=== PATIENT | female | born 1960 | race Caucasian/White ===

== ENCOUNTER 2016-03-22 19:54 | Emergency (ER) | payer OTHER ==
--- NOTE | 2016-03-22 22:13 | ERRECORD ---
[facility] EMERGENCY RECORD HPI BACK (21:06 LLDO) CHIEF COMPLAINT: Patient presents for evaluation of pain, Patient presents for evaluation of tenderness, Patient presents for evaluation of apparently has disc out, causing spinal compression and stenosis. to see dr. conner next week and possible surgery the following week. HISTORIAN: History provided by patient. MECHANISM OF INJURY: No apparent mechanism of injury, No alcohol use associated with this incident, No drug use associated with this incident, No domestic violence associated with this incident, Not work related. LOCATION: Symptoms are localized to the back, to lumbar spine. QUALITY: Pain is dull in nature, described as aching. SEVERITY: Maximum severity of symptoms severe, Currently symptoms are moderate. TIME COURSE: Gradual onset of symptoms, Symptoms are worsening, Symptoms are constant. ASSOCIATED WITH: Associated symptoms reviewed, Associated with radiation of pain. EXACERBATED BY: Patient's condition exacerbated by movement, Patient's condition exacerbated by upright position, Patient's condition exacerbated by walking, Patient's condition exacerbated by PALPATION. RELIEVED BY: Patient's condition relieved by remaining still. RISK FACTORS: Risk factors reviewed, No malignancy risks identified, Herniated disc risks:, Risk factors for thoracic aortic dissection include, Abdominal aortic aneurysm risk factors, include hypertension. ROS CONSTITUTIONAL: Historian reports fatigue. (21:10 LLDO) EYES: Negative eye review of systems, Historian denies eye pain, denies eye redness, denies eye discharge. (21:13 LLDO) ENT: Negative ears, nose, throat review of systems, Historian denies epistaxis, denies rhinorrhea, denies sinus pain, denies sore throat. (21:13 LLDO) CARDIOVASCULAR: Negative cardiovascular review of systems, Historian denies chest pain, no radiation, Historian denies diaphoresis, denies syncope. (21:13 LLDO) RESPIRATORY: Negative respiratory review of systems, Historian denies cough, denies shortness of breath, denies sputum. (21:13 LLDO) GI: Negative gastrointestinal review of systems, Historian denies abdominal pain, denies constipation, denies diarrhea, denies nausea, denies vomiting. (21:13 LLDO) GENITOURINARY FEMALE: Negative genitourinary review of systems, Historian denies dysuria, denies frequency, denies urgency. (21:13 LLDO) MUSCULOSKELETAL: Historian reports back pain, reports myalgias. ONLY IN HPI. (21:10 LLDO) SKIN: Negative skin review of systems, Historian denies cellulitis, denies rash, denies skin changes, denies skin lesions. &a-1R&a+25V*p+0X*f3036Q*c202B*c15G*c2P*p-0X&a-25V&a+1R Name: Rain Ruiz : 1960 F55 MedRec: [id number] AcctNum: [id number] Prepared: TueMar 22, 2016 22:02 by Interface Page 1 of 4 pMD [facility] EMERGENCY RECORD (21:13 LLDO) NEUROLOGIC: Negative neurologic review of systems, Historian denies confusion, denies dizziness, denies focal weakness, denies mental status changes. (21:13 LLDO) HEMO/LYMPHATIC: Normal hematologic/lymphatic system review, Historian denies abnormal blood clotting, denies gum bleeding, denies petechiae. (21:13 LLDO) ALLERGIC/IMMUNOLOGIC: Normal allergy/immunologic system review, Historian denies eczema, denies environmental allergies, denies food allergies. (21:13 LLDO) PSYCHIATRIC: Negative psychiatric review of systems, Historian denies alcohol abuse, denies anxiety, denies depression, denies drug abuse, denies hallucinations. (21:13 LLDO) NOTES: All systems reviewed, negative except as described above. (21:10 LLDO) PAST MEDICAL HISTORY MEDICAL HISTORY: Flu vaccine up to date, Tetanus immunization up to date, Tetanus immunization up to date, Past medical history includes cardiac history, Past medical history includes musculoskeletal disorder, spinal stenosis, EPILEPSY, COMPRESSION L1-L3 HEP C+, Past medical history includes history of diabetes, diet controlled, Past medical history includes history of hypertension. FINISHED WITH HEP C REGIMINE 03/16/15. Verified 10/28/15. SPINAL STENOSIS. (TueMar 22, 2016 20:03 MDEB) FEMALE SURGICAL HISTORY: Surgical history of orthopedic surgery, SPINE, Surgical history of laparotomy, Notes: TIMES 2 DUE TO ENDOMETRIOSIS, OVARIAN CYST, ABDOMINAL ADHESIONS, Surgical history of cholecystectomy, Surgical history of tonsillectomy. Verified 10/28/15. (TueMar 22, 2016 20:03 MDEB) PSYCHIATRIC HISTORY: Psychiatric history includes, anxiety. Verified 10/28/15. (TueMar 22, 2016 20:03 MDEB) SOCIAL HISTORY: Patient denies alcohol use, Patient denies drug use, Patient has no smoking history, Patient denies alcohol use, Patient denies drug use, Patient has no smoking history, Lives at home, , Patient denies alcohol use, Patient denies drug use, Patient is a former tobacco user, smoked cigarettes, Patient quit smoking more than 10 years ago, Lives at home, with family,. Verified 10/28/15. (TueMar 22, 2016 20:03 MDEB) FAMILY HISTORY: Family istory is not significant, MOTHER HAD TIA, Family history includes diabetes, mother, Family history includes hypertension, mother, Family history includes malignancy, father. (TueMar 22, 2016 20:03 MDEB) NOTES: Nursing records reviewed, Agree with nursing records, Medication list reviewed. (21:13 LLDO) KNOWN ALLERGIES indomethacin: Reaction: Rash, Severity: Moderate, Source: Patient, - Entered brand: indomethacin Cap -- Entered brand: &a-1R&a+25V*p+0X*d7275O*c202B*c15G*c2P*p-0X&a-25V&a+1R Name: Rain Ruiz : 1960 F55 MedRec: [id number] AcctNum: [id number] Prepared: TueMar 22, 2016 22:02 by Interface Page 2 of 4 pMD [facility] EMERGENCY RECORD indomethacin Cap indomethacin sodium (Unconfirmed): Reaction: Rash ketorolac tromethamine (Unconfirmed): Reaction: Rash Toradol: Reaction: Rash, Severity: Moderate, Source: Patient, - Entered brand: Toradol Tab -- Entered brand: Toradol Tab CURRENT MEDICATIONS No recorded medications VITAL SIGNS (20:01 MDEB) VITAL SIGNS: BP: 162/98, Pulse: 94, Resp: 20, Temp: 98.2 (Tympanic), Pain: 6, O2 sat: 99 on Room Air, Time: 03/22/2016 20:01. PHYSICAL EXAM CONSTITUTIONAL: Vital Signs Reviewed, Patient afebrile, Pulse normal, Blood pressure, BP ELEVATED, Respiratory rate normal, Patient appears, uncomfortable, Patient appears, in moderate pain distress, Patient alert and oriented to person, place and time, Nursing notes reviewed. (21:11 LLDO) HEAD: Head exam normal, Head exam included findings of head atraumatic, normocephalic. (21:13 LLDO) EYES: Eye exam normal, Eye exam included findings of eyelids normal to inspection, Pupils equally round and reactive to light, Extraocular muscles intact. (21:13 LLDO) ENT: ENT exam normal, Ear exam normal, Nose exam normal. (21:13 LLDO) NECK: Neck exam normal, Neck exam included findings of normal range of motion, Trachea midline, no meningeal signs, no tenderness. (21:13 LLDO) RESPIRATORY CHEST: Respiratory and chest exam normal, Respiratory exam included findings of, Chest exam included findings of chest movement symmetrical, Chest expansion equal. (21:13 LLDO) CARDIOVASCULAR: Cardiovascular assessment normal, Cardiovascular exam included findings of heart rate regular rate and rhythm, Heart sounds normal. (21:13 LLDO) ABDOMEN FEMALE: Abdominal exam normal, Abdominal exam included findings of abdomen nontender, Bowel sounds normal, no peritoneal signs. (21:13 LLDO) BACK: Back exam included findings of normal inspection, Range of motion, limited by pain, Tenderness, no costovertebral angle tenderness, no Scoliosis, no pain with straight leg raise, X-rays not ordered, palpable spasms bilat. (21:11 LLDO) UPPER EXTREMITY: Upper extremity exam normal, Upper extremity exam included findings of inspection normal, Range of motion normal. (21:13 LLDO) LOWER EXTREMITY: Lower extremity exam normal, Lower extremity exam included findings of inspection normal, Range of motion normal. &a-1R&a+25V*p+0X*z0788M*c202B*c15G*c2P*p-0X&a-25V&a+1R Name: Rain Ruiz : 1960 F55 MedRec: [id number] AcctNum: [id number] Prepared: TueMar 22, 2016 22:02 by Interface Page 3 of 4 pMD [facility] EMERGENCY RECORD (21:13 LLDO) NEURO: Neuro exam normal, Neuro exam findings include patient oriented to person, place and time, Speech normal, Kasi coma scale 15. (21:13 LLDO) SKIN: Skin exam normal, Skin exam included findings of skin warm, dry, and normal in color, no rash. (21:13 LLDO) PSYCHIATRIC: Psychiatric exam normal, Psychiatric exam included findings of patient oriented to person place and time, Normal affect. (21:13 LLDO) MEDICATION ADMINISTRATION SUMMARY Drug Name: *Tylenol-Codeine #3, Dose Ordered: 1-2 tab(s), Route: Oral, Status: Given, Time: 21:15 03/22/2016, *Additional information available in notes, Detailed record available in Medication Service section. PROBLEM LIST No recorded problems DIAGNOSIS (21:15 LLDO) FINAL: PRIMARY: LOW BACK PAIN. PRESCRIPTION (21:16 LLDO) Valium oral: TABLET : 10 mg : ORAL : Quantity: 1 Unit: tab(s) Route: ORAL Schedule: every 6 hours PRN Dispense: 40 Unit: tab(s) May substitute. Refills: No Refills . NOTES: No Refills. Tylenol-Codeine #3: TABLET : 300 mg-30 mg : ORAL : Quantity: 1-2 Unit: tab(s) Route: ORAL Schedule: every 4 hours prn Dispense: 40 Unit: tab(s) May substitute. Refills: No Refills . NOTES: ^s=No Refills No Refills. DISPOSITION PATIENT: Disposition Type: Discharge, Disposition: *Discharge Home. (21:15 LLDO) Patient left the department. (21:55 MDEB) Bowden: LLDO=MD Ester, Armando MDEB=GERA Steele, Kaela &a-1R&a+25V*p+0X*s1551P*c202B*c15G*c2P*p-0X&a-25V&a+1R Name: Rain Ruiz : 1960 F55 MedRec: [id number] AcctNum: [id number] Prepared: TueMar 22, 2016 22:02 by Interface Page 4 of 4 pMD MTDD
--- NOTE | 2016-03-22 22:16 | PICIS ---
[facility] EMERGENCY RECORD TRIAGE (TueMar 22, 2016 20:03 MDEB) PATIENT: NAME: Rain Ruiz, AGE: 55, GENDER: female, : Tue1960, TIME OF GREET: TueMar 22, 2016 19:55, PREFERRED LANGUAGE: Tanzanian, RACE: WHITE, ETHNICITY: Not or , FALL RISK: NO, ECODE BILLING MAP: [facility], SSN: [id number], Zip Code: [address], KG WEIGHT: 102.06, PHONE: , , , PERSON ID: [id number], PCP: MD BENITEZ IMELDA. (TueMar 22, 2016 20:03 MDEB) TRIAGE NOTES: LOW BACK PAIN - PT REPORTS SCHEDULED FOR SURGERY IN 2 WKS. (TueMar 22, 2016 20:03 MDEB) COMPLAINT: BACK PAIN. (TueMar 22, 2016 20:03 MDEB) ADMISSION: URGENCY: 4 Non Urgent, ADMISSION SOURCE: Home, TRANSPORT: Walk-in, BED: TRIAGE. (TueMar 22, 2016 20:03 MDEB) PAIN: Patient complains of pain described as, aching, on a scale 0-10 patient rates pain as 6. (TueMar 22, 2016 20:03 MDEB) IMMUNIZATIONS: Tetanus immunization up to date. (TueMar 22, 2016 20:03 MDEB) TRIAGE SCREENING: Patient denies suicidal ideation, Patient denies presence of domestic violence. (TueMar 22, 2016 20:03 MDEB) PROVIDERS: TRIAGE NURSE: Kaela Steele RN. (TueMar 22, 2016 20:03 MDEB) VITAL SIGNS: BP 162/98, Pulse 94, Resp 20, Temp 98.2, (Tympanic), Pain 6, O2 Sat 99, on Room Air, Time 03/22/2016 20:01. (20:01 MDEB) PREVIOUS VISIT ALLERGIES: indomethacin, Toradol. (TueMar 22, 2016 20:03 MDEB) KNOWN ALLERGIES indomethacin: Reaction: Rash, Severity: Moderate, Source: Patient, - Entered brand: indomethacin Cap -- Entered brand: indomethacin Cap indomethacin sodium (Unconfirmed): Reaction: Rash ketorolac tromethamine (Unconfirmed): Reaction: Rash Toradol: Reaction: Rash, Severity: Moderate, Source: Patient, - Entered brand: Toradol Tab -- Entered brand: Toradol Tab CURRENT MEDICATIONS No recorded medications VITAL SIGNS (20:01 MDEB) VITAL SIGNS: BP: 162/98, Pulse: 94, Resp: 20, Temp: 98.2 (Tympanic), Pain: 6, O2 sat: 99 on Room Air, Time: 03/22/2016 20:01. MEDICATION ADMINISTRATION SUMMARY Drug Name: *Tylenol-Codeine #3, Dose Ordered: 1-2 tab(s), Route: Oral, Status: Given, Time: 21:15 03/22/2016, *Additional information available in notes, Detailed record available in Medication Service section. &a-1R&a+25V*p+0X*w9006U*c202B*c15G*c2P*p-0X&a-25V&a+1R Name: Rain Ruiz : 1960 F55 MedRec: [id number] AcctNum: [id number] Prepared: TueMar 22, 2016 22:07 by Interface Page 1 of 6 pMD [facility] EMERGENCY RECORD MEDICATION SERVICE (21:15 LLDO) Tylenol-Codeine #3: Order: Tylenol-Codeine #3 (acetaminophen/codeine phosphate) - Dose: 1-2 tab(s) : Oral Notes: THP OF 6 TABLETS 1-2 PO EVERY 4 HOURS NEEDED FOR PAIN Ordered by: Armando Norman MD Entered by: Armando Norman MD TueMar 22, 2016 21:26 Documented as given by: Kaela Steele RN TueMar 22, 2016 21:15 Patient, Medication, Dose, Route and Time verified prior to administration. Amount given: 27999, Site: Medication administered P.O., Correct patient, time, route, dose and medication confirmed prior to administration, Patient advised of actions and side-effects prior to administration, Allergies confirmed and medications reviewed prior to administration, Patient in position of comfort, Side rails up, Cart in lowest position, Family at bedside. HPI BACK (21:06 LLDO) CHIEF COMPLAINT: Patient presents for evaluation of pain, Patient presents for evaluation of tenderness, Patient presents for evaluation of apparently has disc out, causing spinal compression and stenosis. to see dr. conner next week and possible surgery the following week. HISTORIAN: History provided by patient. MECHANISM OF INJURY: No apparent mechanism of injury, No alcohol use associated with this incident, No drug use associated with this incident, No domestic violence associated with this incident, Not work related. LOCATION: Symptoms are localized to the back, to lumbar spine. QUALITY: Pain is dull in nature, described as aching. SEVERITY: Maximum severity of symptoms severe, Currently symptoms are moderate. TIME COURSE: Gradual onset of symptoms, Symptoms are worsening, Symptoms are constant. ASSOCIATED WITH: Associated symptoms reviewed, Associated with radiation of pain. EXACERBATED BY: Patient's condition exacerbated by movement, Patient's condition exacerbated by upright position, Patient's condition exacerbated by walking, Patient's condition exacerbated by PALPATION. RELIEVED BY: Patient's condition relieved by remaining still. RISK FACTORS: Risk factors reviewed, No malignancy risks identified, Herniated disc risks:, Risk factors for thoracic aortic dissection include, Abdominal aortic aneurysm risk factors, include hypertension. ROS CONSTITUTIONAL: Historian reports fatigue. (21:10 LLDO) EYES: Negative eye review of systems, Historian denies eye pain, denies eye redness, denies eye discharge. (21:13 LLDO) ENT: Negative ears, nose, throat review of systems, Historian &a-1R&a+25V*p+0X*x0165B*c202B*c15G*c2P*p-0X&a-25V&a+1R Name: Rain Ruiz : 1960 F55 MedRec: [id number] AcctNum: [id number] Prepared: TueMar 22, 2016 22:07 by Interface Page 2 of 6 pMD [facility] EMERGENCY RECORD denies epistaxis, denies rhinorrhea, denies sinus pain, denies sore throat. (21:13 LLDO) CARDIOVASCULAR: Negative cardiovascular review of systems, Historian denies chest pain, no radiation, Historian denies diaphoresis, denies syncope. (21:13 LLDO) RESPIRATORY: Negative respiratory review of systems, Historian denies cough, denies shortness of breath, denies sputum. (21:13 LLDO) GI: Negative gastrointestinal review of systems, Historian denies abdominal pain, denies constipation, denies diarrhea, denies nausea, denies vomiting. (21:13 LLDO) GENITOURINARY FEMALE: Negative genitourinary review of systems, Historian denies dysuria, denies frequency, denies urgency. (21:13 LLDO) MUSCULOSKELETAL: Historian reports back pain, reports myalgias. ONLY IN HPI. (21:10 LLDO) SKIN: Negative skin review of systems, Historian denies cellulitis, denies rash, denies skin changes, denies skin lesions. (21:13 LLDO) NEUROLOGIC: Negative neurologic review of systems, Historian denies confusion, denies dizziness, denies focal weakness, denies mental status changes. (21:13 LLDO) HEMO/LYMPHATIC: Normal hematologic/lymphatic system review, Historian denies abnormal blood clotting, denies gum bleeding, denies petechiae. (21:13 LLDO) ALLERGIC/IMMUNOLOGIC: Normal allergy/immunologic system review, Historian denies eczema, denies environmental allergies, denies food allergies. (21:13 LLDO) PSYCHIATRIC: Negative psychiatric review of systems, Historian denies alcohol abuse, denies anxiety, denies depression, denies drug abuse, denies hallucinations. (21:13 LLDO) NOTES: All systems reviewed, negative except as described above. (21:10 LLDO) PAST MEDICAL HISTORY MEDICAL HISTORY: Flu vaccine up to date, Tetanus immunization up to date, Tetanus immunization up to date, Past medical history includes cardiac history, Past medical history includes musculoskeletal disorder, spinal stenosis, EPILEPSY, COMPRESSION L1-L3 HEP C+, Past medical history includes history of diabetes, diet controlled, Past medical history includes history of hypertension. FINISHED WITH HEP C REGIMINE 03/16/15. Verified 10/28/15. SPINAL STENOSIS. (TueMar 22, 2016 20:03 MDEB) FEMALE SURGICAL HISTORY: Surgical history of orthopedic surgery, SPINE, Surgical history of laparotomy, Notes: TIMES 2 DUE TO ENDOMETRIOSIS, OVARIAN CYST, ABDOMINAL ADHESIONS, Surgical history of cholecystectomy, Surgical history of tonsillectomy. Verified 10/28/15. (TueMar 22, 2016 20:03 MDEB) PSYCHIATRIC HISTORY: Psychiatric history includes, anxiety. Verified 10/28/15. (TueMar 22, 2016 20:03 MDEB) &a-1R&a+25V*p+0X*g4459C*c202B*c15G*c2P*p-0X&a-25V&a+1R Name: Rain Ruiz : 1960 F55 MedRec: [id number] AcctNum: [id number] Prepared: TueMar 22, 2016 22:07 by Interface Page 3 of 6 pMD [facility] EMERGENCY RECORD SOCIAL HISTORY: Patient denies alcohol use, Patient denies drug use, Patient has no smoking history, Patient denies alcohol use, Patient denies drug use, Patient has no smoking history, Lives at home, , Patient denies alcohol use, Patient denies drug use, Patient is a former tobacco user, smoked cigarettes, Patient quit smoking more than 10 years ago, Lives at home, with family,. Verified 10/28/15. (TueMar 22, 2016 20:03 MDEB) FAMILY HISTORY: Family istory is not significant, MOTHER HAD TIA, Family history includes diabetes, mother, Family history includes hypertension, mother, Family history includes malignancy, father. (TueMar 22, 2016 20:03 MDEB) NOTES: Nursing records reviewed, Agree with nursing records, Medication list reviewed. (21:13 LLDO) PHYSICAL EXAM CONSTITUTIONAL: Vital Signs Reviewed, Patient afebrile, Pulse normal, Blood pressure, BP ELEVATED, Respiratory rate normal, Patient appears, uncomfortable, Patient appears, in moderate pain distress, Patient alert and oriented to person, place and time, Nursing notes reviewed. (21:11 LLDO) HEAD: Head exam normal, Head exam included findings of head atraumatic, normocephalic. (21:13 LLDO) EYES: Eye exam normal, Eye exam included findings of eyelids normal to inspection, Pupils equally round and reactive to light, Extraocular muscles intact. (21:13 LLDO) ENT: ENT exam normal, Ear exam normal, Nose exam normal. (21:13 LLDO) NECK: Neck exam normal, Neck exam included findings of normal range of motion, Trachea midline, no meningeal signs, no tenderness. (21:13 LLDO) RESPIRATORY CHEST: Respiratory and chest exam normal, Respiratory exam included findings of, Chest exam included findings of chest movement symmetrical, Chest expansion equal. (21:13 LLDO) CARDIOVASCULAR: Cardiovascular assessment normal, Cardiovascular exam included findings of heart rate regular rate and rhythm, Heart sounds normal. (21:13 LLDO) ABDOMEN FEMALE: Abdominal exam normal, Abdominal exam included findings of abdomen nontender, Bowel sounds normal, no peritoneal signs. (21:13 LLDO) BACK: Back exam included findings of normal inspection, Range of motion, limited by pain, Tenderness, no costovertebral angle tenderness, no Scoliosis, no pain with straight leg raise, X-rays not ordered, palpable spasms bilat. (21:11 LLDO) UPPER EXTREMITY: Upper extremity exam normal, Upper extremity exam included findings of inspection normal, Range of motion normal. (21:13 LLDO) LOWER EXTREMITY: Lower extremity exam normal, Lower extremity &a-1R&a+25V*p+0X*u2050W*c202B*c15G*c2P*p-0X&a-25V&a+1R Name: Rain Ruiz : 1960 F55 MedRec: [id number] AcctNum: [id number] Prepared: TueMar 22, 2016 22:07 by Interface Page 4 of 6 pMD [facility] EMERGENCY RECORD exam included findings of inspection normal, Range of motion normal. (21:13 LLDO) NEURO: Neuro exam normal, Neuro exam findings include patient oriented to person, place and time, Speech normal, Kasi coma scale 15. (21:13 LLDO) SKIN: Skin exam normal, Skin exam included findings of skin warm, dry, and normal in color, no rash. (21:13 LLDO) PSYCHIATRIC: Psychiatric exam normal, Psychiatric exam included findings of patient oriented to person place and time, Normal affect. (21:13 LLDO) EVENTS TRANSFER: Triage to Emergency Triage. (20:04 MDEB) Emergency Triage to Main ED -01. (20:04 MDEB) Emergency Main ED -01 to -H01. (20:52 MDEB) Removed from Emergency Main ED -H01. (21:55 MDEB) PROBLEM LIST No recorded problems DIAGNOSIS (21:15 LLDO) FINAL: PRIMARY: LOW BACK PAIN. DISPOSITION PATIENT: Disposition Type: Discharge, Disposition: *Discharge Home. (21:15 LLDO) Patient left the department. (21:55 MDEB) INSTRUCTION (21:19 LLDO) DISCHARGE: BACK CARE TIPS. FOLLOWUP: MD ELI, ZHANNA, [address] [address], [phone], Follow up with Primary Care Physician as scheduled. SPECIAL: Follow-up with your surgeon and pain management. PRESCRIPTION (21:16 LLDO) Valium oral: TABLET : 10 mg : ORAL : Quantity: 1 Unit: tab(s) Route: ORAL Schedule: every 6 hours PRN Dispense: 40 Unit: tab(s) May substitute. Refills: No Refills . NOTES: No Refills. Tylenol-Codeine #3: TABLET : 300 mg-30 mg : ORAL : Quantity: 1-2 Unit: tab(s) Route: ORAL Schedule: every 4 hours prn Dispense: 40 Unit: tab(s) May substitute. Refills: No Refills . NOTES: ^s=No Refills No Refills. ADMIN DIGITAL SIGNATURE: MD Norman Lloyd. (21:19 LLDO) &a-1R&a+25V*p+0X*k2608G*c202B*c15G*c2P*p-0X&a-25V&a+1R Name: Rain Ruiz : 1960 F55 MedRec: [id number] AcctNum: [id number] Prepared: TueMar 22, 2016 22:07 by Interface Page 5 of 6 pMD [facility] EMERGENCY RECORD MD Norman Lloyd. (21:26 LLDO) MD Norman Lloyd. (21:26 LLDO) Bowden: HARSHA=MD Norman Lloyd MDEB=GERA Steele, Kaela &a-1R&a+25V*p+0X*u7101K*c202B*c15G*c2P*p-0X&a-25V&a+1R Name: Rain Ruiz : 1960 F55 MedRec: [id number] AcctNum: [id number] Prepared: TueMar 22, 2016 22:07 by Interface Page 6 of 6 pMD [facility] MEDICATION RECONCILIATION You were seen in the Emergency Department on: TueMar 22, 2016 KNOWN ALLERGIES indomethacin: Reaction: Rash, Severity: Moderate, Source: Patient, - Entered brand: indomethacin Cap -- Entered brand: indomethacin Cap indomethacin sodium (Unconfirmed): Reaction: Rash ketorolac tromethamine (Unconfirmed): Reaction: Rash Toradol: Reaction: Rash, Severity: Moderate, Source: Patient, - Entered brand: Toradol Tab -- Entered brand: Toradol Tab MEDICATIONS GIVEN WHILE IN THE EMERGENCY DEPARTMENT Tylenol-Codeine #3 (acetaminophen/codeine phosphate) - Dose: 1-2 tab(s) : Oral Notes from the emergency department Reviewed with family Reviewed with patient PRESCRIPTIONS (2) Printed (2) Valium oral : TABLET : 10 mg : ORAL Quantity: 1, Unit: tab(s), Route: ORAL, Schedule: every 6 hours PRN, Dispense: 40 Unit: tab(s) &a-1R&a+25V*p+0X*r2246Q*c202B*c15G*c2P*p-0X&a-25V&a+1R Name: Rain Ruiz : 1960 F55 MedRec: [id number] AcctNum: [id number] Prepared: TueMar 22, 2016 22:07 by Interface Caron FLAHERTY
== END 2016-03-22 21:25 | disposition home or self-care (01) ==
LOC: MADERS 19:54
DX: M54.5 Low back pain (principal); G40.909 Epilepsy, unspecified, not intractable, without status epilepticus; I10 Essential (primary) hypertension; E11.9 Type 2 diabetes mellitus without complications; Z90.49 Acquired absence of other specified parts of digestive tract; Z90.89 Acquired absence of other organs; F41.9 Anxiety disorder, unspecified
CPT/HCPCS: 99283

== ENCOUNTER 2016-08-15 19:06 | Emergency (ER) | payer OTHER | END 2016-08-15 19:42 | disposition home or self-care (01) | LOC: MADERS 19:06 | DX: S30.0XXA Contusion of lower back and pelvis, initial encounter (principal); M48.06 Spinal stenosis, lumbar region; G40.909 Epilepsy, unspecified, not intractable, without status epilepticus; E11.9 Type 2 diabetes mellitus without complications; I10 Essential (primary) hypertension; F41.9 Anxiety disorder, unspecified; Z86.19 Personal history of other infectious and parasitic diseases; Z87.891 Personal history of nicotine dependence; W10.9XXA Fall (on) (from) unspecified stairs and steps, initial encounter | CPT/HCPCS: 99283 ==

== ENCOUNTER 2016-09-04 13:37 | Emergency (ER) | payer OTHER ==
[2016-09-04] MEDS ORDERED: Morphine Sulfate 2 MG/ML SYRINGE ONE (14:06)
[2016-09-04] MEDS ORDERED: Ondansetron ODT 4 MG TAB ONE (14:06)
== END 2016-09-04 14:30 | disposition home or self-care (01) ==
LOC: MADERS 13:37
DX: G89.18 Other acute postprocedural pain (principal); M54.5 Low back pain; B19.20 Unspecified viral hepatitis C without hepatic coma; E11.9 Type 2 diabetes mellitus without complications; I10 Essential (primary) hypertension; F41.9 Anxiety disorder, unspecified; Z87.891 Personal history of nicotine dependence
CPT/HCPCS: 96372; J2270; Q0162

== ENCOUNTER 2016-10-06 11:28 | Emergency (ER) | payer OTHER ==
[2016-10-06] MEDS ORDERED: Triple Antibiotic Oint 1 GM Packet ONE (11:59)
[2016-10-06] MEDS ORDERED: HYDROcodone/Acetaminophen 10/325 mg Tablet ONE (12:05)
[2016-10-06] MEDS ORDERED: Sulfameth/Trimethoprim DS 800-160mg TAB ONE (12:05)
[2016-10-06] MEDS ORDERED: Diazepam 5 MG TAB ONE ×2 (12:05→12:07)
== END 2016-10-06 12:10 | disposition home or self-care (01) ==
LOC: MADERS 11:28
DX: G89.18 Other acute postprocedural pain (principal); M54.9 Dorsalgia, unspecified; E11.9 Type 2 diabetes mellitus without complications; I10 Essential (primary) hypertension; F41.9 Anxiety disorder, unspecified; Z87.891 Personal history of nicotine dependence
CPT/HCPCS: 99283

== ENCOUNTER 2016-12-09 18:25 | Emergency (ER) | payer OTHER ==
[2016-12-09] MEDS ORDERED: Diazepam 5 MG TAB ONE (19:03)
[2016-12-09] MEDS ORDERED: Ondansetron ODT 4 MG TAB ONE (19:04)
== END 2016-12-09 19:13 | disposition home or self-care (01) ==
LOC: MADERS 18:25
DX: G89.18 Other acute postprocedural pain (principal); M54.5 Low back pain; E11.9 Type 2 diabetes mellitus without complications; F41.9 Anxiety disorder, unspecified; G40.909 Epilepsy, unspecified, not intractable, without status epilepticus; I10 Essential (primary) hypertension; Z87.891 Personal history of nicotine dependence; Z79.899 Other long term (current) drug therapy; Z79.891 Long term (current) use of opiate analgesic
CPT/HCPCS: 96372; J2270; Q0162

== ENCOUNTER 2016-12-15 14:09 | Outpatient (CLI) | payer OTHER ==
[2016-12-15 14:27] LABS: Hemoglobin 16.1 g/dL (12.0-16.0); Mean Corpuscular HGB CONC 32.7 g/dL (32.0-36.0); Mean Corpuscular Hemoglobin 28.6 pg (27.0-31.0); Mean Corpuscular Volume 87.4 fl (81.0-99.0); Mean Platelet Volume 7.7 fL (7.4-10.4); Platelet Count 188 thou/uL (130-400); RBC Distribution Width 13.1 % (11.5-14.5); Red Blood Cell (RBC) Count 5.64 mill/uL (4.20-5.40); White Blood Cell (WBC) Count 11.7 thou/uL (4.8-10.8)
== END 2016-12-15 14:10 | disposition home or self-care (01) ==
LOC: MADLAB 14:09
PROVIDERS: ATTEND Surgery
DX: T81.4XXA Infection following a procedure, initial encounter (principal)
CPT/HCPCS: 36415; 85027; 85652; 86140

== ENCOUNTER 2016-12-15 14:22 | Emergency (ER) | payer OTHER ==
[2016-12-15 15:25] LABS: Bilirubin Negative (Negative); Blood, Urine Negative (Negative); Clarity Clear (Clear); Glucose, Urine (Dipstick) Negative (Negative); Leukocyte Negative (Negative); Nitrite Negative (Negative); Protein, Urine (Dipstick) Negative (Neg-Trace); Specific Gravity, Urine 1.015 (1.005-1.030); Urobilinogen 0.2 mg/dL (0.2-1.0); pH, Urine 5.5 (5.0-9.0)
== END 2016-12-15 15:55 | disposition home or self-care (01) ==
LOC: MADERS 14:22
DX: R53.83 Other fatigue (principal); G40.909 Epilepsy, unspecified, not intractable, without status epilepticus; E11.9 Type 2 diabetes mellitus without complications; I10 Essential (primary) hypertension; F41.9 Anxiety disorder, unspecified; Z87.891 Personal history of nicotine dependence
CPT/HCPCS: 81003; 99283

== ENCOUNTER 2016-12-16 12:15 | Emergency (ER) | payer OTHER ==
[2016-12-16] MEDS ORDERED: Diazepam 5 MG TAB ONE (13:40)
[2016-12-16] MEDS ORDERED: HYDROcodone/Acetaminophen 10/325 mg Tablet ONE (13:40)
[2016-12-16] MEDS ORDERED: Gabapentin 100 MG CAP ONE (13:41)
[2016-12-16] MEDS ORDERED: Dexamethasone 4 MG TAB ONE (13:41)
== END 2016-12-16 14:18 | disposition home or self-care (01) ==
LOC: MADERS 12:15
DX: G89.18 Other acute postprocedural pain (principal); M54.5 Low back pain; E11.9 Type 2 diabetes mellitus without complications; I10 Essential (primary) hypertension; F41.9 Anxiety disorder, unspecified; Z87.891 Personal history of nicotine dependence
CPT/HCPCS: 99282; J8540

== ENCOUNTER 2017-01-09 15:14 | Emergency (ER) | payer OTHER ==
[2017-01-09] MEDS ORDERED: HYDROcodone/Acetaminophen 10/325 mg Tablet ONE (16:08)
== END 2017-01-09 16:16 | disposition home or self-care (01) ==
LOC: MADERS 15:14
DX: M54.5 Low back pain (principal); I10 Essential (primary) hypertension; G40.909 Epilepsy, unspecified, not intractable, without status epilepticus; E11.9 Type 2 diabetes mellitus without complications; F41.9 Anxiety disorder, unspecified; Z87.891 Personal history of nicotine dependence; Z79.899 Other long term (current) drug therapy; Z79.82 Long term (current) use of aspirin
CPT/HCPCS: 99283

== ENCOUNTER 2017-02-14 18:23 | Emergency (ER) | payer OTHER ==
[2017-02-14] MEDS ORDERED: Dexamethasone 4 MG TAB ONE (18:50)
[2017-02-14] MEDS ORDERED: HYDROcodone/Acetaminophen 10/325 mg Tablet ONE (18:50)
[2017-02-14] MEDS ORDERED: Diazepam 5 MG TAB ONE (18:50)
[2017-02-14] MEDS ORDERED: Acetaminophen 500 MG TAB ONE (18:50)
== END 2017-02-14 18:59 | disposition home or self-care (01) ==
LOC: MADERS 18:23
DX: M54.5 Low back pain (principal); G40.909 Epilepsy, unspecified, not intractable, without status epilepticus; I10 Essential (primary) hypertension; E11.9 Type 2 diabetes mellitus without complications; F41.9 Anxiety disorder, unspecified; Z87.891 Personal history of nicotine dependence; Z79.899 Other long term (current) drug therapy; Z79.82 Long term (current) use of aspirin
CPT/HCPCS: 99283; J8540

== ENCOUNTER 2017-04-08 14:13 | Emergency (ER) | payer OTHER ==
[2017-04-08] MEDS ORDERED: HYDROcodone/Acetaminophen 5/325 mg Tablet ONE (15:44)
== END 2017-04-08 15:56 | disposition home or self-care (01) ==
LOC: MADERS 14:13
DX: M54.5 Low back pain (principal); E11.9 Type 2 diabetes mellitus without complications; I10 Essential (primary) hypertension; F41.9 Anxiety disorder, unspecified; Z87.891 Personal history of nicotine dependence; Z79.82 Long term (current) use of aspirin; Z79.891 Long term (current) use of opiate analgesic; Z79.899 Other long term (current) drug therapy
CPT/HCPCS: 99283

== ENCOUNTER 2017-04-12 21:53 | Emergency (ER) | payer OTHER ==
[2017-04-12] MEDS ORDERED: Promethazine HCl 25 MG/ML VIAL ONE (22:21)
[2017-04-12] MEDS ORDERED: Morphine 4 MG/ML VIAL ONE (22:21)
== END 2017-04-12 22:50 | disposition home or self-care (01) ==
LOC: MADERS 21:53
DX: K52.9 Noninfective gastroenteritis and colitis, unspecified (principal); E78.5 Hyperlipidemia, unspecified; E11.9 Type 2 diabetes mellitus without complications; I10 Essential (primary) hypertension; F41.9 Anxiety disorder, unspecified; Z87.891 Personal history of nicotine dependence
CPT/HCPCS: 96372; J2270; J2550

== ENCOUNTER 2017-04-14 16:50 | Emergency (ER) | payer OTHER ==
[~2017-04-14 16:50] MED LIST: Sodium Chloride 0.9% 1,000 ML BAG ONE
[2017-04-14] MEDS ORDERED: Morphine 4 MG/ML VIAL ONE (17:10)
[2017-04-14] MEDS ORDERED: Pantoprazole 40 MG VIAL ONE (17:11)
[2017-04-14] MEDS ORDERED: Promethazine HCl 25 MG/ML VIAL ONE (17:11)
[2017-04-14 18:05] LABS: ALT (SGPT) 30 U/L (8-55); AST (SGOT) 20 U/L (5-34); Albumin 4.5 g/dL (3.5-5.0); Alkaline Phosphatase 81 U/L (40-150); Anion Gap 15 mmol/L (10-20); BUN (Urea Nitrogen) 22 mg/dL (9.8-20.1); Bilirubin, Total 0.6 mg/dL (0.2-1.2); Calc. Creatinine Clearance 0 mL/min (70-130); Calcium 9.8 mg/dL (7.8-10.44); Carbon Dioxide 25 mmol/L (22-29); Chloride 106 mmol/L (98-107); Estimated GFR-MDRD 69; Globulin 2.9 g/dL (2.4-3.5); Glucose 124 mg/dL (70-105); Lipase 41 U/L (8-78); Potassium 4.1 mmol/L (3.5-5.1); Protein, Total 7.4 g/dL (6.0-8.3); Sodium 142 mmol/L (136-145)
[2017-04-14 18:17] LABS: #Basophils 0.1 thou/uL (0.0-0.2); #Eosinphils 0.2 thou/uL (0.0-0.7); #Lymphocytes 3.3 thou/uL (1.20-3.40); #Monocytes 0.4 thou/uL (0.11-0.59); #Neutrophils 6.6 thou/uL (1.40-6.50); %Basophils 0.7 % (0.0-1.0); %Eosinophils 2.1 % (0.0-10.0); %Lymphocytes 30.7 % (21.0-51.0); %Monocytes 3.9 % (0.0-10.0); %Neutrophils 62.5 % (42.0-75.0); Hemoglobin 15.4 g/dL (12.0-16.0); Mean Corpuscular HGB CONC 34.6 g/dL (32.0-36.0); Mean Corpuscular Volume 92.4 fl (81.0-99.0); Mean Platelet Volume 6.2 fL (7.4-10.4); Platelet Count 195 thou/uL (130-400); RBC Distribution Width 12.1 % (11.5-14.5); Red Blood Cell (RBC) Count 4.83 mill/uL (4.20-5.40); White Blood Cell (WBC) Count 10.6 thou/uL (4.8-10.8)
--- NOTE | 2017-04-14 21:49 | CT ---
CT OF THE ABDOMEN AND PELVIS WITH IV AND ENTERIC CONTRAST MATERIAL 04/14/17 PROVIDED CLINICAL HISTORY: Right upper quadrant pain. FINDINGS: Comparison is made with the study dated 10/02/14. The visualized lung bases are free of significant opacity. Solid abdominal organs demonstrate an unremarkable CT appearance. There is no bowel dilatation, inflammatory fat stranding, free fluid or free air apparent. The append ix appears normal. Changes of prior cholecystectomy are seen. Postoperative changes are seen involving the lumbar spine. The osseous structures demonstrate no concerning lytic or blastic lesions. Occasional vascular calci fications are seen. There is possible wall thickening involving the visualized distal esophagus. IMPRESSION: Question mural thickening involving the distal esophagus, correlate with concerns for esophagitis. Fo llowup esophagram or endoscopy may be useful if indicated. POS: [facility]
== END 2017-04-14 19:49 | disposition home or self-care (01) ==
LOC: MADERS 16:50
DX: K20.9 Esophagitis, unspecified (principal); E78.5 Hyperlipidemia, unspecified; E11.9 Type 2 diabetes mellitus without complications; F41.9 Anxiety disorder, unspecified; Z87.891 Personal history of nicotine dependence; Z79.899 Other long term (current) drug therapy
CPT/HCPCS: 74177; 80053; 83690; 85025; 96365; 96366; 96375; C9113; J2270; J2550; J7050

== ENCOUNTER 2017-04-24 15:01 | Emergency (ER) | payer OTHER ==
--- NOTE | 2017-04-24 16:05 | RAD ---
CHEST PA AND LATERAL: History: 56-year-old female with cough. FINDINGS: Heart size is within normal limits. The lungs are clear. There is minimal motion artifact. No conflue nt pneumonia, overt edema or pleural effusion. Stable from 7-17-13. IMPRESSION: No acute intrathoracic disease. No evidence for pneumonia. POS: [facility]
== END 2017-04-24 16:11 | disposition home or self-care (01) ==
LOC: MADERS 15:01
DX: J20.9 Acute bronchitis, unspecified (principal); E78.5 Hyperlipidemia, unspecified; E11.9 Type 2 diabetes mellitus without complications; I10 Essential (primary) hypertension; F41.9 Anxiety disorder, unspecified; Z87.891 Personal history of nicotine dependence; Z79.891 Long term (current) use of opiate analgesic; Z79.899 Other long term (current) drug therapy
CPT/HCPCS: 71046

== ENCOUNTER 2017-05-06 10:52 | Emergency (ER) | payer OTHER ==
[2017-05-06] MEDS ORDERED: HYDROcodone/Acetaminophen 10/325 mg Tablet ONE (11:36)
[2017-05-06] MEDS ORDERED: cloNIDine 0.1 MG TAB ONE (12:00)
--- NOTE | 2017-05-06 12:36 | RAD ---
AP PELVIS RADIOGRAPH: DATE: 05/06/17. HISTORY: Fall. COMPARISON: 10/22/14. FINDINGS: There is no evidence of a fracture or dislocation. Joint spaces are stable when compared to the prio r exam. No other findings. IMPRESSION: No acute osseous abnormality involving the pelvis. POS: [facility]
--- NOTE | 2017-05-06 12:37 | RAD ---
TWO VIEWS LEFT HIP: DATE: 05/06/17. HISTORY: Injury after a fall. FINDINGS: There is no fracture or dislocation involving the left hip. No other osseous abnormality is apprecia juan. Phleboliths overlie the pelvis. IMPRESSION: No acute osseous abnormality of left hip. POS: [facility]
--- NOTE | 2017-05-06 12:37 | RAD ---
LEFT TIBIA FIBULA: HISTORY: Fall. Pain. COMPARISON: None. FINDINGS: No fracture. No cortical irregularity. No periosteal reaction. IMPRESSION: Unremarkable 2 views left tibia and fibula. POS: [facility]
--- NOTE | 2017-05-06 12:39 | RAD ---
TWO VIEWS OF THE LEFT SHOULDER: DATE: 05/06/17. HISTORY: Injury after fall. COMPARISON: 08/14/13. FINDINGS: Again noted is acromioclavicular joint osteoarthritis. The coracoclavicular and acromioclavicular di stances are within normal limits. There is no fracture or dislocation seen on provided images. No o ther osseous abnormality. The shoulder is stable from prior exam. IMPRESSION: 1. No acute osseous abnormality of left shoulder. 2. Acromioclavicular joint osteoarthritis. POS: [facility]
--- NOTE | 2017-05-06 12:40 | RAD ---
THREE VIEWS LEFT HAND: DATE: 05/06/17. HISTORY: Injury left hand after a fall. FINDINGS: There is no evidence of a fracture or dislocation involving the left hand. Minimal osteoarthritis in volves the interphalangeal joint of the thumb. IMPRESSION: No acute osseous abnormality of the left hand. POS: [facility]
== END 2017-05-06 12:30 | disposition home or self-care (01) ==
LOC: MADERS 10:52
DX: S40.012A Contusion of left shoulder, initial encounter (principal); S60.222A Contusion of left hand, initial encounter; I10 Essential (primary) hypertension; E78.5 Hyperlipidemia, unspecified; E11.9 Type 2 diabetes mellitus without complications; F41.9 Anxiety disorder, unspecified; Z87.891 Personal history of nicotine dependence; W19.XXXA Unspecified fall, initial encounter
CPT/HCPCS: 72170

== ENCOUNTER 2017-06-01 15:25 | Emergency (ER) | payer OTHER ==
[~2017-06-01 15:25] MED LIST changes: +Nitroglycerin 0.4 MG TAB (25 Tab Bottle) ONE; -Sodium Chloride 0.9% 1,000 ML BAG ONE
[2017-06-01 16:09] LABS: INR-International Normal Ratio 0.9; Prothrombin Time 12.1 SEC (12.0-14.7)
[2017-06-01 16:21] LABS: ALT (SGPT) 31 U/L (8-55); AST (SGOT) 20 U/L (5-34); Albumin 4.3 g/dL (3.5-5.0); Alkaline Phosphatase 96 U/L (40-150); Anion Gap 17 mmol/L (10-20); BUN (Urea Nitrogen) 10 mg/dL (9.8-20.1); Bilirubin, Total 0.4 mg/dL (0.2-1.2); CK (CPK) 124 U/L (29-168); Calc. Creatinine Clearance 0 mL/min (70-130); Calcium 9.8 mg/dL (7.8-10.44); Carbon Dioxide 23 mmol/L (22-29); Chloride 105 mmol/L (98-107); Estimated GFR-MDRD 80; Globulin 2.5 g/dL (2.4-3.5); Glucose 170 mg/dL (70-105); Potassium 4.3 mmol/L (3.5-5.1); Protein, Total 6.8 g/dL (6.0-8.3); Sodium 141 mmol/L (136-145)
[2017-06-01 16:23] LABS: CKMB 1.4 ng/mL (0-6.6); Troponin I Less than 0.010 ng/mL (< 0.028)
[2017-06-01 16:37] LABS: Hemoglobin 14.6 g/dL (12.0-16.0); Mean Corpuscular HGB CONC 34.8 g/dL (32.0-36.0); Mean Corpuscular Hemoglobin 31.3 pg (27.0-31.0); Mean Platelet Volume 7.2 fL (7.4-10.4); Platelet Count 171 thou/uL (130-400); RBC Distribution Width 12.2 % (11.5-14.5); Red Blood Cell (RBC) Count 4.66 mill/uL (4.20-5.40); White Blood Cell (WBC) Count 8.7 thou/uL (4.8-10.8)
[2017-06-01 16:52] LABS: Neutrophil 65 % (42-75)
[2017-06-01 16:53] LABS: Band 1 % (5-11); Eosinophils 3 % (0-10); Lymphocytes 23 % (21-51); Monocytes 2 % (0-10); PLT Morphology Comment Appears Adequate; RBC Morphology Normal; Reactive Lymphocytes 6 % (0-10)
[2017-06-01 16:54] LABS: MDiff Complete? YES; Manual Diff?? YES
--- NOTE | 2017-06-01 17:00 | RAD ---
AP VIEW CHEST: 06/01/17 HISTORY: Epigastric pain, high blood pressure. COMPARISON: Comparison made to previous exam from 01/27/14. AP view chest demonstrates the lungs to be well aerated. No evidence of active intrathoracic disease is seen. No evidence of effusions, pneumonia or pneumothorax seen. IMPRESSION: Unremarkable AP view chest. POS: [facility]
[2017-06-01] MEDS ORDERED: MORPHINE 10 MG/ML SYRINGE ONE (17:15)
[2017-06-01] MEDS ORDERED: Labetalol HCl 100 MG/20 ML VIAL ONE (17:16)
[2017-06-01] MEDS ORDERED: Lorazepam 2 MG/ML VIAL ONE (17:24)
[2017-06-01 17:27] LABS: Bilirubin Negative (Negative); Blood, Urine Negative (Negative); Clarity Clear (Clear); Glucose, Urine (Dipstick) Negative (Negative); Leukocyte Small (Negative); Nitrite Negative (Negative); Protein, Urine (Dipstick) Negative (Neg-Trace); Specific Gravity, Urine 1.015 (1.005-1.030); Urobilinogen 0.2 mg/dL (0.2-1.0); pH, Urine 7.5 (5.0-9.0)
[2017-06-01 17:35] LABS: Bacteria/HPF Rare-Few HPF (None Seen); RBC/HPF None Seen HPF (0-3); Squamous Epithelial 0-3 HPF (0-3); WBC/HPF 0-3 HPF (0-3); Yeast-All Forms Rare HPF (None Seen)
[2017-06-01] MEDS ORDERED: ALPRAZolam 0.25 MG TAB ONE ×2 (20:25)
== END 2017-06-01 20:42 | disposition short-term general hospital (02) ==
LOC: MADERS 15:25
DX: I20.0 Unstable angina (principal); I10 Essential (primary) hypertension; E11.9 Type 2 diabetes mellitus without complications; E78.5 Hyperlipidemia, unspecified; F41.9 Anxiety disorder, unspecified; Z87.891 Personal history of nicotine dependence; Z79.899 Other long term (current) drug therapy
CPT/HCPCS: 71045; 80053; 81001; 82550; 82553; 83880; 84484; 85025; 85610; 85730; 87086; 93005; 94760; 96374; 96375; 96376; J2060; J2270

== ENCOUNTER 2017-06-07 16:53 | Emergency (ER) | payer OTHER ==
[2017-06-07 17:54] LABS: Bilirubin Negative (Negative); Blood, Urine Negative (Negative); Clarity Clear (Clear); Glucose, Urine (Dipstick) Negative (Negative); Leukocyte Negative (Negative); Nitrite Negative (Negative); Protein, Urine (Dipstick) Negative (Neg-Trace); Urobilinogen 0.2 mg/dL (0.2-1.0)
[2017-06-07 18:02] LABS: #Basophils 0.1 thou/uL (0.0-0.2); #Eosinphils 0.2 thou/uL (0.0-0.7); #Lymphocytes 3.3 thou/uL (1.20-3.40); #Monocytes 0.2 thou/uL (0.11-0.59); #Neutrophils 6.6 thou/uL (1.40-6.50); %Basophils 0.8 % (0.0-1.0); %Eosinophils 2.1 % (0.0-10.0); %Lymphocytes 31.2 % (21.0-51.0); %Monocytes 2.3 % (0.0-10.0); %Neutrophils 63.5 % (42.0-75.0); Hemoglobin 15.5 g/dL (12.0-16.0); Mean Corpuscular HGB CONC 33.4 g/dL (32.0-36.0); Mean Corpuscular Hemoglobin 30.1 pg (27.0-31.0); Mean Corpuscular Volume 90.1 fl (81.0-99.0); Mean Platelet Volume 6.4 fL (7.4-10.4); Platelet Count 214 thou/uL (130-400); RBC Distribution Width 12.3 % (11.5-14.5); Red Blood Cell (RBC) Count 5.15 mill/uL (4.20-5.40); White Blood Cell (WBC) Count 10.4 thou/uL (4.8-10.8)
[2017-06-07 18:28] LABS: CK (CPK) 87 U/L (29-168); Lipase 38 U/L (8-78)
[2017-06-07 18:30] LABS: CKMB 0.7 ng/mL (0-6.6); Troponin I Less than 0.010 ng/mL (< 0.028)
[2017-06-07] MEDS ORDERED: MORPHINE 10 MG/ML SYRINGE ONE (18:46)
--- NOTE | 2017-06-07 19:06 | RAD ---
RADIOGRAPH CHEST 2 VIEWS: 06/07/17 HISTORY: 57-year-old female with hypertension and acute chest pain. FINDINGS: There is no air space density, pulmonary edema, pleural effusion, pneumothorax, or cardiomegaly. IMPRESSION: No acute cardiopulmonary findings. rose [] POS: [facility]
== END 2017-06-07 19:02 | disposition home or self-care (01) ==
LOC: MADERS 16:53
DX: R07.9 Chest pain, unspecified (principal); R30.0 Dysuria; F41.9 Anxiety disorder, unspecified; E11.9 Type 2 diabetes mellitus without complications; Z87.891 Personal history of nicotine dependence; E78.5 Hyperlipidemia, unspecified; M48.00 Spinal stenosis, site unspecified; Z79.891 Long term (current) use of opiate analgesic; Z79.899 Other long term (current) drug therapy
CPT/HCPCS: 36415; 71046; 81003; 82550; 82553; 83690; 84484; 85025; 93005; 96374; J2270

== ENCOUNTER 2017-07-31 13:54 | Emergency (ER) | payer OTHER ==
[2017-07-31] MEDS ORDERED: HYDROcodone/Acetaminophen 10/325 mg Tablet ONE (14:54)
[2017-07-31] MEDS ORDERED: Diazepam 5 MG TAB ONE (14:54)
[2017-07-31] MEDS ORDERED: Acetaminophen 325 MG TAB ONE (14:55)
[2017-07-31 15:02] LABS: Bilirubin Negative (Negative); Blood, Urine Negative (Negative); Clarity Clear (Clear); Glucose, Urine (Dipstick) Negative (Negative); Leukocyte Negative (Negative); Nitrite Negative (Negative); Protein, Urine (Dipstick) Negative (Neg-Trace); Urobilinogen 0.2 mg/dL (0.2-1.0)
[2017-07-31 15:03] LABS: Specific Gravity, Urine 1.006 (1.002-1.036)
== END 2017-07-31 15:50 | disposition home or self-care (01) ==
LOC: MADERS 13:54
DX: M54.5 Low back pain (principal); I25.10 Atherosclerotic heart disease of native coronary artery without angina pectoris; E78.5 Hyperlipidemia, unspecified; E11.9 Type 2 diabetes mellitus without complications; I10 Essential (primary) hypertension; F41.9 Anxiety disorder, unspecified; F43.10 Post-traumatic stress disorder, unspecified; Z87.891 Personal history of nicotine dependence; Z79.84 Long term (current) use of oral hypoglycemic drugs; Z79.899 Other long term (current) drug therapy; Z79.891 Long term (current) use of opiate analgesic; Z79.02 Long term (current) use of antithrombotics/antiplatelets
CPT/HCPCS: 81003; 99283

== ENCOUNTER 2017-08-23 22:03 | Emergency (ER) | payer OTHER ==
[2017-08-23 22:37] LABS: #Basophils 0.1 thou/uL (0.0-0.2); #Eosinphils 0.3 thou/uL (0.0-0.7); #Lymphocytes 3.2 thou/uL (1.20-3.40); #Monocytes 0.4 thou/uL (0.11-0.59); #Neutrophils 5.2 thou/uL (1.40-6.50); %Basophils 0.6 % (0.0-1.0); %Eosinophils 3.1 % (0.0-10.0); %Lymphocytes 35.5 % (21.0-51.0); %Monocytes 4.3 % (0.0-10.0); %Neutrophils 56.5 % (42.0-75.0); Hemoglobin 13.8 g/dL (12.0-16.0); Mean Corpuscular HGB CONC 33.8 g/dL (32.0-36.0); Mean Platelet Volume 6.6 fL (7.4-10.4); Platelet Count 173 thou/uL (130-400); RBC Distribution Width 12.3 % (11.5-14.5); Red Blood Cell (RBC) Count 4.74 mill/uL (4.20-5.40); White Blood Cell (WBC) Count 9.1 thou/uL (4.8-10.8)
[2017-08-23 22:55] LABS: INR-International Normal Ratio 0.9; PTT 27.3 SEC (22.9-36.1); Prothrombin Time 12.7 SEC (12.0-14.7)
--- NOTE | 2017-08-23 23:03 | RAD ---
CHEST ONE VIEW: 08/23/17 COMPARISON: 08/23/17 at 11:15 a.m. HISTORY: Pain. FINDINGS: Normal cardiac silhouette. Interval prominence of the pulmonary vasculature with increased interstiti al opacities likely due to edema or infiltrate. No significant pleural fluid. No pneumothorax. IMPRESSION: Pulmonary vascular prominence. Interstitial opacities due to edema or infiltrate. POS: [facility]
[2017-08-23 23:09] LABS: ALT (SGPT) 29 U/L (8-55); AST (SGOT) 20 U/L (5-34); Albumin 4.4 g/dL (3.5-5.0); Alkaline Phosphatase 95 U/L (40-150); Anion Gap 18 mmol/L (10-20); BUN (Urea Nitrogen) 23 mg/dL (9.8-20.1); Bilirubin, Total 0.4 mg/dL (0.2-1.2); CK (CPK) 77 U/L (29-168); Calc. Creatinine Clearance 0 mL/min (70-130); Calcium 9.9 mg/dL (7.8-10.44); Carbon Dioxide 24 mmol/L (22-29); Chloride 103 mmol/L (98-107); Estimated GFR-MDRD 70; Globulin 2.4 g/dL (2.4-3.5); Glucose 139 mg/dL (70-105); Magnesium 1.7 mg/dL (1.6-2.6); Protein, Total 6.8 g/dL (6.0-8.3); Sodium 141 mmol/L (136-145)
[2017-08-23 23:17] LABS: CKMB 0.6 ng/mL (0-6.6); Troponin I Less than 0.010 ng/mL (< 0.028)
[2017-08-24] MEDS ORDERED: Diazepam 5 MG TAB ONE (00:22)
[2017-08-24] MEDS ORDERED: Morphine 4 MG/ML VIAL ONE (00:22)
[2017-08-24] MEDS ORDERED: Ondansetron ODT 4 MG TAB ONE (00:22)
== END 2017-08-24 00:40 | disposition home or self-care (01) ==
LOC: MADERS 22:03
DX: M54.5 Low back pain (principal); I20.9 Angina pectoris, unspecified; E11.9 Type 2 diabetes mellitus without complications; E78.2 Mixed hyperlipidemia; I10 Essential (primary) hypertension; F41.9 Anxiety disorder, unspecified; F43.10 Post-traumatic stress disorder, unspecified; B19.20 Unspecified viral hepatitis C without hepatic coma; Z79.82 Long term (current) use of aspirin; Z79.84 Long term (current) use of oral hypoglycemic drugs; Z87.891 Personal history of nicotine dependence
CPT/HCPCS: 36415; 71045; 83735; 83880; 85610; 85730; 93005; 94760; 96372; J2270; Q0162

== ENCOUNTER 2017-08-25 14:56 | Emergency (ER) | payer OTHER ==
[2017-08-25 16:03] LABS: #Basophils 0.1 thou/uL (0.0-0.2); #Eosinphils 0.3 thou/uL (0.0-0.7); #Lymphocytes 2.6 thou/uL (1.20-3.40); #Monocytes 0.5 thou/uL (0.11-0.59); #Neutrophils 6.3 thou/uL (1.40-6.50); %Basophils 0.9 % (0.0-1.0); %Eosinophils 2.8 % (0.0-10.0); %Lymphocytes 26.4 % (21.0-51.0); %Monocytes 4.8 % (0.0-10.0); Hemoglobin 14.9 g/dL (12.0-16.0); Mean Corpuscular Hemoglobin 30.2 pg (27.0-31.0); Mean Corpuscular Volume 86.2 fl (81.0-99.0); Mean Platelet Volume 6.9 fL (7.4-10.4); Platelet Count 188 thou/uL (130-400); RBC Distribution Width 12.2 % (11.5-14.5); Red Blood Cell (RBC) Count 4.93 mill/uL (4.20-5.40); White Blood Cell (WBC) Count 9.7 thou/uL (4.8-10.8)
[2017-08-25 16:22] LABS: ALT (SGPT) 33 U/L (8-55); AST (SGOT) 25 U/L (5-34); Albumin 4.7 g/dL (3.5-5.0); Alkaline Phosphatase 98 U/L (40-150); Anion Gap 22 mmol/L (10-20); BUN (Urea Nitrogen) 18 mg/dL (9.8-20.1); Bilirubin, Total 0.5 mg/dL (0.2-1.2); Calc. Creatinine Clearance 0 mL/min (70-130); Calcium 10.1 mg/dL (7.8-10.44); Carbon Dioxide 21 mmol/L (22-29); Chloride 99 mmol/L (98-107); Estimated GFR-MDRD 66; Globulin 2.8 g/dL (2.4-3.5); Glucose 134 mg/dL (70-105); Potassium 4.4 mmol/L (3.5-5.1); Protein, Total 7.5 g/dL (6.0-8.3); Sodium 138 mmol/L (136-145)
[2017-08-25] MEDS ORDERED: Morphine 4 MG/ML VIAL ONE (16:33)
== END 2017-08-25 17:07 | disposition short-term general hospital (02) ==
LOC: MADERS 14:56
DX: M54.5 Low back pain (principal); R29.818 Other symptoms and signs involving the nervous system; E11.9 Type 2 diabetes mellitus without complications; E78.5 Hyperlipidemia, unspecified; I10 Essential (primary) hypertension; E78.1 Pure hyperglyceridemia; F41.9 Anxiety disorder, unspecified; M48.00 Spinal stenosis, site unspecified; F43.10 Post-traumatic stress disorder, unspecified; Z79.899 Other long term (current) drug therapy; Z79.891 Long term (current) use of opiate analgesic; Z79.82 Long term (current) use of aspirin
CPT/HCPCS: 80053; 85025; 85652; 96374; J2270

== ENCOUNTER 2017-09-15 17:58 | Emergency (ER) | payer OTHER ==
[2017-09-15] MEDS ORDERED: Dexamethasone 4 MG TAB ONE (18:43)
[2017-09-15] MEDS ORDERED: Morphine 10 MG/ML VIAL ONE (18:43)
[2017-09-15] MEDS ORDERED: Diazepam 5 MG TAB ONE (18:43)
[2017-09-15] MEDS ORDERED: Naloxone HCl 2 mg/2 ml Syringe ONE (20:25)
== END 2017-09-15 19:12 | disposition home or self-care (01) ==
LOC: MADERS 17:58
DX: M54.5 Low back pain (principal); E11.9 Type 2 diabetes mellitus without complications; E78.1 Pure hyperglyceridemia; I10 Essential (primary) hypertension; F41.9 Anxiety disorder, unspecified; F43.10 Post-traumatic stress disorder, unspecified; I20.9 Angina pectoris, unspecified; Z87.891 Personal history of nicotine dependence; Z79.899 Other long term (current) drug therapy; Z79.891 Long term (current) use of opiate analgesic; Z79.82 Long term (current) use of aspirin; Z79.84 Long term (current) use of oral hypoglycemic drugs
CPT/HCPCS: 96372; J2270; J2310; J8540

== ENCOUNTER 2018-01-19 20:34 | Emergency (ER) | payer OTHER ==
[2018-01-19 21:45] LABS: #Basophils 0.1 thou/uL (0.0-0.2); #Eosinphils 0.2 thou/uL (0.0-0.7); #Lymphocytes 2.7 thou/uL (1.20-3.40); #Monocytes 0.4 thou/uL (0.11-0.59); #Neutrophils 9.8 thou/uL (1.40-6.50); %Basophils 0.6 % (0.0-1.0); %Eosinophils 1.7 % (0.0-10.0); %Lymphocytes 20.4 % (21.0-51.0); %Monocytes 2.8 % (0.0-10.0); %Neutrophils 74.6 % (42.0-75.0); Mean Corpuscular HGB CONC 33.4 g/dL (32.0-36.0); Mean Corpuscular Hemoglobin 29.5 pg (27.0-31.0); Mean Corpuscular Volume 88.4 fL (78.0-98.0); Mean Platelet Volume 6.3 fL (7.4-10.4); Platelet Count 272 thou/uL (130-400); RBC Distribution Width 12.7 % (11.5-14.5); Red Blood Cell (RBC) Count 5.76 mill/uL (4.20-5.40); White Blood Cell (WBC) Count 13.2 thou/uL (4.8-10.8)
[2018-01-19] MEDS ORDERED: HYDROcodone/Acetaminophen 10/325 mg Tablet ONE (21:47)
[2018-01-19] MEDS ORDERED: Acetaminophen 325 MG TAB ONE (21:47)
--- NOTE | 2018-01-20 07:39 | RAD ---
TWO VIEWS OF THE CHEST: 01/19/18 COMPARISON: 12/30/17. HISTORY: Chest pressure and shortness of breath since earlier today. FINDINGS: Two views of the chest show normal sized cardiomediastinal silhouette. There is no evidence of consol idation, mass, or pleural effusion. The bones are unremarkable. IMPRESSION: No evidence of acute cardiopulmonary disease. POS: [facility]
== END 2018-01-19 21:55 | disposition left against medical advice (07) ==
LOC: MADERS 20:34
DX: R07.9 Chest pain, unspecified (principal); I25.10 Atherosclerotic heart disease of native coronary artery without angina pectoris
CPT/HCPCS: 71046; 85025; 93005

== ENCOUNTER 2018-01-20 19:15 | Emergency (ER) | payer OTHER ==
[2018-01-20 19:49] LABS: Band 3 % (5-11); Eosinophils 2 % (0-10); Hemoglobin 16.1 g/dL (12.0-16.0); Lymphocytes 23 % (21-51); MDiff Complete? YES; Mean Corpuscular HGB CONC 33.7 g/dL (32.0-36.0); Mean Corpuscular Hemoglobin 29.6 pg (27.0-31.0); Mean Corpuscular Volume 87.7 fL (78.0-98.0); Monocytes 5 % (0-10); Neutrophil 67 % (42-75); PLT Morphology Comment Appears Adequate; Platelet Count 216 thou/uL (130-400); RBC Distribution Width 12.5 % (11.5-14.5); Red Blood Cell (RBC) Count 5.45 mill/uL (4.20-5.40); White Blood Cell (WBC) Count 11.2 thou/uL (4.8-10.8)
[2018-01-20 19:52] LABS: ALT (SGPT) 25 U/L (8-55); AST (SGOT) 16 U/L (5-34); Albumin 4.5 g/dL (3.5-5.0); Alkaline Phosphatase 93 U/L (40-150); Anion Gap 16 mmol/L (10-20); BUN (Urea Nitrogen) 16 mg/dL (9.8-20.1); Bilirubin, Total 0.7 mg/dL (0.2-1.2); Calc. Creatinine Clearance 0 mL/min (70-130); Calcium 9.7 mg/dL (7.8-10.44); Carbon Dioxide 23 mmol/L (22-29); Chloride 102 mmol/L (98-107); Estimated GFR-MDRD 73; Globulin 2.5 g/dL (2.4-3.5); Glucose 253 mg/dL (70-105); Potassium 4.1 mmol/L (3.5-5.1); Sodium 137 mmol/L (136-145)
[2018-01-20] MEDS ORDERED: Ondansetron PF 4 MG/2 ML Vial ONE (20:24)
[2018-01-20] MEDS ORDERED: Acetaminophen/Codeine 30-300mg Tablet ONE (20:24)
--- NOTE | 2018-01-20 21:07 | RAD ---
ONE VIEW CHEST: 01/20/18 HISTORY: Chest pain. AP view chest is obtained on 01/20/18. COMPARISON: Comparison made to previous radiograph from 12/04/17. AP view chest is unremarkable. No evidence of acute intrathoracic abnormality seen. No evidence of ef fusions, pneumonia or pneumothorax seen. IMPRESSION: Unremarkable AP view chest. POS: [facility]
== END 2018-01-20 20:37 | disposition short-term general hospital (02) ==
LOC: MADERS 19:15
DX: R07.9 Chest pain, unspecified (principal); F90.9 Attention-deficit hyperactivity disorder, unspecified type; F41.9 Anxiety disorder, unspecified; E11.9 Type 2 diabetes mellitus without complications; E78.1 Pure hyperglyceridemia; Z87.891 Personal history of nicotine dependence; Z79.891 Long term (current) use of opiate analgesic; Z79.82 Long term (current) use of aspirin; Z79.899 Other long term (current) drug therapy
CPT/HCPCS: 71045; 80053; 84484; 85025; 93005; 96374; J2405

== ENCOUNTER 2018-01-23 18:43 | Emergency (ER) | payer OTHER ==
[2018-01-23 19:05] LABS: #Basophils 0.1 thou/uL (0.0-0.2); #Eosinphils 0.3 thou/uL (0.0-0.7); #Lymphocytes 2.9 thou/uL (1.20-3.40); #Monocytes 0.6 thou/uL (0.11-0.59); #Neutrophils 7.1 thou/uL (1.40-6.50); %Basophils 0.7 % (0.0-1.0); %Eosinophils 2.9 % (0.0-10.0); %Lymphocytes 26.3 % (21.0-51.0); %Monocytes 5.4 % (0.0-10.0); %Neutrophils 64.8 % (42.0-75.0); Hemoglobin 15.4 g/dL (12.0-16.0); Mean Corpuscular HGB CONC 33.9 g/dL (32.0-36.0); Mean Corpuscular Hemoglobin 29.8 pg (27.0-31.0); Mean Platelet Volume 6.2 fL (7.4-10.4); Platelet Count 257 thou/uL (130-400); RBC Distribution Width 12.7 % (11.5-14.5); Red Blood Cell (RBC) Count 5.17 mill/uL (4.20-5.40)
[2018-01-23 19:19] LABS: ALT (SGPT) 50 U/L (8-55); AST (SGOT) 35 U/L (5-34); Albumin 4.7 g/dL (3.5-5.0); Alkaline Phosphatase 91 U/L (40-150); Anion Gap 21 mmol/L (10-20); BUN (Urea Nitrogen) 15 mg/dL (9.8-20.1); Bilirubin, Total 0.7 mg/dL (0.2-1.2); Calc. Creatinine Clearance 0 mL/min (70-130); Carbon Dioxide 19 mmol/L (22-29); Chloride 103 mmol/L (98-107); Estimated GFR-MDRD 58; Globulin 2.7 g/dL (2.4-3.5); Glucose 171 mg/dL (70-105); Potassium 4.4 mmol/L (3.5-5.1); Protein, Total 7.4 g/dL (6.0-8.3); Sodium 139 mmol/L (136-145)
--- NOTE | 2018-01-23 19:20 | RAD ---
CHEST ONE VIEW: INDICATIONS: Chest pain. FINDINGS: The lungs are clear. The cardiomediastinal silhouette is within normal limits. No acute osseous abn ormality is evident. IMPRESSION: No acute cardiopulmonary abnormality. POS: [facility]
[2018-01-23 19:22] LABS: CKMB 0.7 ng/mL (0-6.6); Troponin I Less than 0.010 ng/mL (< 0.028)
[2018-01-23] MEDS ORDERED: Acetaminophen/Codeine 30-300mg Tablet ONE (19:55)
== END 2018-01-23 20:00 | disposition home or self-care (01) ==
LOC: MADERS 18:43
DX: R07.89 Other chest pain (principal); E11.9 Type 2 diabetes mellitus without complications; E78.5 Hyperlipidemia, unspecified; E78.2 Mixed hyperlipidemia; I10 Essential (primary) hypertension; I25.10 Atherosclerotic heart disease of native coronary artery without angina pectoris; F41.9 Anxiety disorder, unspecified; Z87.891 Personal history of nicotine dependence; Z79.82 Long term (current) use of aspirin; Z79.84 Long term (current) use of oral hypoglycemic drugs
CPT/HCPCS: 71045; 80053; 82553; 84484; 85025; 93005

== ENCOUNTER 2018-09-25 17:05 | Emergency (ER) | payer OTHER ==
[2018-09-25 18:04] LABS: Bilirubin Negative (Negative); Blood, Urine Negative (Negative); Clarity Clear (Clear); Glucose, Urine (Dipstick) 500 mg/dL (Negative); Leukocyte Negative (Negative); Nitrite Negative (Negative); Protein, Urine (Dipstick) Negative (Neg-Trace); Urobilinogen 0.2 mg/dL (Less than 2)
[2018-09-25] MEDS ORDERED: HYDROcodone/Acetaminophen 5/325 mg Tablet ONE (18:06)
[2018-09-25 18:19] LABS: #Basophils 0.1 thou/uL (0.0-0.2); #Eosinphils 0.2 thou/uL (0.0-0.7); #Lymphocytes 2.2 thou/uL (1.20-3.40); #Monocytes 0.6 thou/uL (0.11-0.59); #Neutrophils 6.1 thou/uL (1.40-6.50); %Basophils 0.8 % (0.0-1.0); %Eosinophils 2.5 % (0.0-10.0); %Lymphocytes 24.1 % (21.0-51.0); %Monocytes 6.1 % (0.0-10.0); %Neutrophils 66.6 % (42.0-75.0); Hemoglobin 14.7 g/dL (12.0-16.0); Mean Corpuscular Hemoglobin 28.4 pg (27.0-31.0); Mean Platelet Volume 6.9 fL (7.4-10.4); Platelet Count 200 thou/uL (130-400); RBC Distribution Width 12.8 % (11.5-14.5); Red Blood Cell (RBC) Count 5.18 mill/uL (4.20-5.40); White Blood Cell (WBC) Count 9.2 thou/uL (4.8-10.8)
[2018-09-25 18:37] LABS: ALT (SGPT) 29 U/L (8-55); AST (SGOT) 22 U/L (5-34); Albumin 4.6 g/dL (3.5-5.0); Alkaline Phosphatase 124 U/L (40-150); Anion Gap 19 mmol/L (10-20); BUN (Urea Nitrogen) 10 mg/dL (9.8-20.1); Bilirubin, Total 0.3 mg/dL (0.2-1.2); Calc. Creatinine Clearance 0 mL/min (70-130); Calcium 9.8 mg/dL (7.8-10.44); Carbon Dioxide 26 mmol/L (22-29); Chloride 100 mmol/L (98-107); Estimated GFR-MDRD 70; Globulin 2.8 g/dL (2.4-3.5); Glucose 325 mg/dL (70-105); Potassium 4.1 mmol/L (3.5-5.1); Protein, Total 7.4 g/dL (6.0-8.3); Sodium 141 mmol/L (136-145)
== END 2018-09-25 19:46 | disposition home or self-care (01) ==
LOC: MADERS 17:05
DX: E11.65 Type 2 diabetes mellitus with hyperglycemia (principal); E86.0 Dehydration; E78.2 Mixed hyperlipidemia; I10 Essential (primary) hypertension; F43.10 Post-traumatic stress disorder, unspecified; Z79.82 Long term (current) use of aspirin; Z79.84 Long term (current) use of oral hypoglycemic drugs; Z79.899 Other long term (current) drug therapy
CPT/HCPCS: 36415; 51798; 80053; 81003; 85025

== ENCOUNTER 2019-01-21 14:25 | Emergency (ER) | payer OTHER ==
[2019-01-21] MEDS ORDERED: Sodium Chloride 0.9% 1,000 ML ONE (14:54)
[2019-01-21] MEDS ORDERED: Pantoprazole 40 MG VIAL ONE (14:54)
[2019-01-21] MEDS ORDERED: Mag-Al Plus 1200 MG/1200 MG/120 MG/30 ML UDCUP ONE (14:55)
[2019-01-21] MEDS ORDERED: Lidocaine Viscous Sol 2% 15 ml UD Cup ONE (14:55)
[2019-01-21 15:35] LABS: Band 3 % (5-11); Eosinophils 1 % (0-10); Hemoglobin 15.5 g/dL (12.0-16.0); Lymphocytes 18 % (21-51); MDiff Complete? YES; Mean Corpuscular HGB CONC 31.6 g/dL (32.0-36.0); Mean Corpuscular Hemoglobin 27.3 pg (27.0-31.0); Mean Corpuscular Volume 86.3 fL (78.0-98.0); Mean Platelet Volume 7.8 fL (7.4-10.4); Monocytes 6 % (0-10); Neutrophil 71 % (42-75); Platelet Count 179 thou/uL (130-400); Platelet Morphology Comment Appears Adequate; RBC Distribution Width 12.8 % (11.5-14.5); Red Blood Cell (RBC) Count 5.67 mill/uL (4.20-5.40); White Blood Cell (WBC) Count 10.7 thou/uL (4.8-10.8)
[2019-01-21] MEDS ORDERED: Promethazine HCl 25 MG/ML VIAL ONE (15:39)
[2019-01-21] MEDS ORDERED: Sodium Chloride 0.9% 100 ML ONE (15:39)
[2019-01-21 15:43] LABS: ALT (SGPT) 28 U/L (8-55); AST (SGOT) 21 U/L (5-34); Alkaline Phosphatase 96 U/L (40-110); Anion Gap 20 mmol/L (10-20); BUN (Urea Nitrogen) 12 mg/dL (9.8-20.1); Bilirubin, Total 0.7 mg/dL (0.2-1.2); Calc. Creatinine Clearance 0 mL/min (70-130); Calcium 10.2 mg/dL (7.8-10.44); Carbon Dioxide 23 mmol/L (22-29); Chloride 100 mmol/L (98-107); Estimated GFR-MDRD 61; Globulin 2.7 g/dL (2.4-3.5); Glucose 163 mg/dL (70-105); Lipase 48 U/L (8-78); Potassium 3.8 mmol/L (3.5-5.1); Protein, Total 7.7 g/dL (6.0-8.3); Sodium 139 mmol/L (136-145)
== END 2019-01-21 16:50 | disposition home or self-care (01) ==
LOC: MADERS 14:25
DX: R10.13 Epigastric pain (principal); E11.9 Type 2 diabetes mellitus without complications; E78.5 Hyperlipidemia, unspecified; E78.2 Mixed hyperlipidemia; I10 Essential (primary) hypertension; F43.10 Post-traumatic stress disorder, unspecified; F41.9 Anxiety disorder, unspecified; Z87.891 Personal history of nicotine dependence; Z77.22 Contact with and (suspected) exposure to environmental tobacco smoke (acute) (chronic); Z79.82 Long term (current) use of aspirin; Z79.899 Other long term (current) drug therapy; Z79.01 Long term (current) use of anticoagulants; Z79.4 Long term (current) use of insulin
CPT/HCPCS: 80053; 83690; 84484; 85025; 93005; 96365; 96375; C9113; J2550; J3490; J7050

== ENCOUNTER 2019-08-06 14:45 | Emergency (ER) | payer OTHER ==
--- NOTE | 2019-08-06 15:29 | RAD ---
PORTABLE CHEST: History: Chest pain Comparison: 08-02-2019 FINDINGS: The lungs appear clear. No infiltrate identified. Heart and mediastinum unremarkable. Vasculature upp er normal. IMPRESSION: No acute finding. POS: [facility]
[2019-08-06 15:32] LABS: #Basophils 0.1 thou/uL (0.0-0.2); #Eosinphils 0.3 thou/uL (0.0-0.7); #Lymphocytes 2.9 thou/uL (1.20-3.40); #Monocytes 0.6 thou/uL (0.11-0.59); %Eosinophils 2.4 % (0.0-10.0); %Lymphocytes 26.5 % (21.0-51.0); %Monocytes 5.3 % (0.0-10.0); %Neutrophils 64.8 % (42.0-75.0); Hemoglobin 14.8 g/dL (12.0-16.0); Mean Corpuscular HGB CONC 31.6 g/dL (32.0-36.0); Mean Corpuscular Hemoglobin 27.8 pg (27.0-31.0); Mean Corpuscular Volume 87.9 fL (78.0-98.0); Mean Platelet Volume 6.5 fL (7.4-10.4); Platelet Count 207 thou/uL (130-400); RBC Distribution Width 13.3 % (11.5-14.5); Red Blood Cell (RBC) Count 5.33 mill/uL (4.20-5.40); White Blood Cell (WBC) Count 10.8 thou/uL (4.8-10.8)
[2019-08-06 15:38] LABS: INR-International Normal Ratio 0.9; Prothrombin Time 12.1 sec (12.0-14.7)
[2019-08-06 15:49] LABS: ALT (SGPT) 22 U/L (8-55); AST (SGOT) 13 U/L (5-34); Albumin 4.6 g/dL (3.5-5.0); Alkaline Phosphatase 120 U/L (40-110); Anion Gap 18 mmol/L (10-20); BUN (Urea Nitrogen) 12 mg/dL (9.8-20.1); Bilirubin, Total 0.3 mg/dL (0.2-1.2); Calc. Creatinine Clearance 0 mL/min (70-130); Calcium 9.5 mg/dL (7.8-10.44); Carbon Dioxide 24 mmol/L (22-29); Chloride 102 mmol/L (98-107); Estimated GFR-MDRD 70; Globulin 2.7 g/dL (2.4-3.5); Glucose 308 mg/dL (70-105); Potassium 4.1 mmol/L (3.5-5.1); Protein, Total 7.3 g/dL (6.0-8.3); Sodium 140 mmol/L (136-145)
[2019-08-06] MEDS ORDERED: Ondansetron PF 4 MG/2 ML Vial ONE (16:16)
[2019-08-06] MEDS ORDERED: Nitroglycerin 0.4 MG TAB 1 EACH ONE (16:16)
[2019-08-07 11:23] LABS: SARS-CoV-2 MS2 Positive; SARS-CoV-2 N Gene Negative; SARS-CoV-2 S Gene Negative; SARS-CoV-2 orf1ab Negative
== END 2019-08-06 17:08 | disposition home or self-care (01) ==
LOC: MADERS 14:45
DX: R07.9 Chest pain, unspecified (principal); R06.00 Dyspnea, unspecified; E11.9 Type 2 diabetes mellitus without complications; I20.9 Angina pectoris, unspecified; E78.1 Pure hyperglyceridemia; E78.00 Pure hypercholesterolemia, unspecified; E78.5 Hyperlipidemia, unspecified; F43.10 Post-traumatic stress disorder, unspecified; F41.9 Anxiety disorder, unspecified; Z79.899 Other long term (current) drug therapy; Z79.82 Long term (current) use of aspirin
CPT/HCPCS: 36415; 71045; 80053; 84484; 85025; 85610; 87635; 93005; 96374; J2405; U0003

== ENCOUNTER 2019-08-23 14:07 | Emergency (ER) | payer OTHER ==
[2019-08-23] MEDS ORDERED: Amoxicillin/Potassium Clav 875 MG TAB ONE (14:54)
== END 2019-08-23 14:57 | disposition home or self-care (01) ==
LOC: MADERS 14:07
DX: S61.452A Open bite of left hand, initial encounter (principal); E78.00 Pure hypercholesterolemia, unspecified; E11.9 Type 2 diabetes mellitus without complications; I25.10 Atherosclerotic heart disease of native coronary artery without angina pectoris; Z87.891 Personal history of nicotine dependence; W55.01XA Bitten by cat, initial encounter
CPT/HCPCS: 99283

== ENCOUNTER 2021-01-10 12:23 | Emergency (ER) | payer OTHER ==
[2021-01-10 13:47] LABS: #Eosinphils 0.2 thou/uL (0.0-0.7); #Lymphocytes 2.4 thou/uL (1.20-3.40); #Monocytes 0.4 thou/uL (0.11-0.59); #Neutrophils 7.6 thou/uL (1.40-6.50); %Basophils 0.4 % (0.0-1.0); %Eosinophils 1.4 % (0.0-10.0); %Lymphocytes 22.8 % (21.0-51.0); %Monocytes 3.8 % (0.0-10.0); %Neutrophils 71.6 % (42.0-75.0); Hemoglobin 16.5 g/dL (12.0-16.0); Mean Corpuscular HGB CONC 32.4 g/dL (32.0-36.0); Mean Corpuscular Hemoglobin 28.3 pg (27.0-31.0); Mean Corpuscular Volume 87.3 fL (78.0-98.0); Platelet Count 171 thou/uL (130-400); RBC Distribution Width 13.7 % (11.5-14.5); Red Blood Cell (RBC) Count 5.81 mill/uL (4.20-5.40); White Blood Cell (WBC) Count 10.6 thou/uL (4.8-10.8)
[2021-01-10 14:06] LABS: ALT (SGPT) 26 U/L (8-55); AST (SGOT) 25 U/L (5-34); Albumin 4.9 g/dL (3.5-5.0); Alkaline Phosphatase 75 U/L (40-110); Anion Gap 18 mmol/L (10-20); BUN (Urea Nitrogen) 10 mg/dL (9.8-20.1); Bilirubin, Total 0.6 mg/dL (0.2-1.2); Calc. Creatinine Clearance 0 mL/min (70-130); Calcium 10.7 mg/dL (7.8-10.44); Carbon Dioxide 26 mmol/L (22-29); Chloride 104 mmol/L (98-107); Globulin 2.9 g/dL (2.4-3.5); Glucose 106 mg/dL (70-105); Potassium 4.1 mmol/L (3.5-5.1); Protein, Total 7.8 g/dL (6.0-8.3); Sodium 144 mmol/L (136-145)
== END 2021-01-10 14:07 | disposition short-term general hospital (02) ==
LOC: MADERS 12:23
DX: M79.661 Pain in right lower leg (principal); R06.00 Dyspnea, unspecified; E78.2 Mixed hyperlipidemia; I10 Essential (primary) hypertension; I25.10 Atherosclerotic heart disease of native coronary artery without angina pectoris; E11.43 Type 2 diabetes mellitus with diabetic autonomic (poly)neuropathy; K31.84 Gastroparesis; Z87.891 Personal history of nicotine dependence; Z79.84 Long term (current) use of oral hypoglycemic drugs; Z79.82 Long term (current) use of aspirin; Z79.899 Other long term (current) drug therapy
CPT/HCPCS: 36415; 80053; 85025; 85379; 99284

== ENCOUNTER 2021-08-15 16:26 | Emergency (ER) | payer OTHER ==
[2021-08-15 17:31] LABS: #Basophils 0.1 thou/uL (0.0-0.2); #Eosinphils 0.3 thou/uL (0.0-0.7); #Lymphocytes 2.5 thou/uL (1.20-3.40); #Monocytes 0.4 thou/uL (0.11-0.59); #Neutrophils 6.5 thou/uL (1.40-6.50); %Basophils 0.7 % (0.0-1.0); %Eosinophils 3.5 % (0.0-10.0); %Lymphocytes 25.4 % (21.0-51.0); %Monocytes 4.1 % (0.0-10.0); %Neutrophils 66.3 % (42.0-75.0); Hemoglobin 15.1 g/dL (12.0-16.0); Mean Corpuscular HGB CONC 32.4 g/dL (32.0-36.0); Mean Corpuscular Hemoglobin 27.7 pg (27.0-31.0); Mean Corpuscular Volume 85.3 fL (78.0-98.0); Mean Platelet Volume 7.7 fL (7.4-10.4); Platelet Count 168 thou/uL (130-400); RBC Distribution Width 13.5 % (11.5-14.5); Red Blood Cell (RBC) Count 5.47 mill/uL (4.20-5.40); White Blood Cell (WBC) Count 9.8 thou/uL (4.8-10.8)
[2021-08-15 17:48] LABS: ALT (SGPT) 20 U/L (8-55); AST (SGOT) 20 U/L (5-34); Albumin 4.5 g/dL (3.5-5.0); Alkaline Phosphatase 63 U/L (40-110); Anion Gap 17 mmol/L (10-20); BUN (Urea Nitrogen) 12 mg/dL (9.8-20.1); Bilirubin, Total 0.5 mg/dL (0.2-1.2); Calc. Creatinine Clearance 0 mL/min (70-130); Calcium 9.8 mg/dL (7.8-10.44); Carbon Dioxide 23 mmol/L (22-29); Chloride 105 mmol/L (98-107); Globulin 2.4 g/dL (2.4-3.5); Glucose 123 mg/dL (70-105); Lipase 30 U/L (8-78); Potassium 3.9 mmol/L (3.5-5.1); Protein, Total 6.9 g/dL (6.0-8.3); Sodium 141 mmol/L (136-145)
[2021-08-15] MEDS ORDERED: Morphine 4 MG/ML VIAL ONE (17:48)
[2021-08-15] MEDS ORDERED: Ondansetron PF 4 MG/2 ML Vial ONE (17:48)
== END 2021-08-15 18:58 | disposition home or self-care (01) ==
LOC: MADERS 16:26
DX: R07.89 Other chest pain (principal); R20.2 Paresthesia of skin; E78.00 Pure hypercholesterolemia, unspecified; I10 Essential (primary) hypertension; I25.10 Atherosclerotic heart disease of native coronary artery without angina pectoris; E11.43 Type 2 diabetes mellitus with diabetic autonomic (poly)neuropathy; K31.84 Gastroparesis; Z87.891 Personal history of nicotine dependence; Z79.82 Long term (current) use of aspirin; Z79.84 Long term (current) use of oral hypoglycemic drugs; Z79.899 Other long term (current) drug therapy
CPT/HCPCS: 71045; 80053; 83690; 83880; 84484; 85025; 85379; 93005; 96374; 96375; J2270; J2405

== ENCOUNTER 2023-03-25 13:26 | Emergency (ER) | payer OTHER ==
[2023-03-25] MEDS ORDERED: Metoclopramide HCl 10 MG TAB ONE (14:32)
== END 2023-03-25 14:36 | disposition home or self-care (01) ==
LOC: MADERS 13:26
DX: E11.43 Type 2 diabetes mellitus with diabetic autonomic (poly)neuropathy (principal); K31.84 Gastroparesis; I10 Essential (primary) hypertension; Z79.84 Long term (current) use of oral hypoglycemic drugs; Z87.891 Personal history of nicotine dependence
CPT/HCPCS: 99283

== ENCOUNTER 2023-05-21 12:12 | Emergency (ER) | payer OTHER | END 2023-05-21 12:47 | disposition home or self-care (01) | LOC: MADERS 12:12 | DX: M54.2 Cervicalgia (principal); R05.9 Cough, unspecified; E11.9 Type 2 diabetes mellitus without complications; I10 Essential (primary) hypertension; E78.2 Mixed hyperlipidemia; I25.10 Atherosclerotic heart disease of native coronary artery without angina pectoris; Z79.84 Long term (current) use of oral hypoglycemic drugs; Z79.01 Long term (current) use of anticoagulants; Z79.899 Other long term (current) drug therapy; Z55.6 Problems related to health literacy | CPT/HCPCS: 99283 ==

== ENCOUNTER 2023-09-03 10:14 | Emergency (ER) | payer OTHER ==
[2023-09-03] MEDS ORDERED: Ondansetron ODT 4 MG TAB ONE (11:03)
== END 2023-09-03 11:10 | disposition home or self-care (01) ==
LOC: MADERS 10:14
DX: K31.84 Gastroparesis (principal); E11.9 Type 2 diabetes mellitus without complications; I10 Essential (primary) hypertension; Z87.891 Personal history of nicotine dependence
CPT/HCPCS: 99283; Q0162

== ENCOUNTER 2024-11-16 14:49 | Emergency (ER) | payer OTHER | END 2024-11-16 15:49 | disposition home or self-care (01) | LOC: MADERS 14:49 | DX: M79.89 Other specified soft tissue disorders (principal); I11.0 Hypertensive heart disease with heart failure; I50.9 Heart failure, unspecified; E11.9 Type 2 diabetes mellitus without complications | CPT/HCPCS: 99283 ==